=== PATIENT | female | born 1955 | race Two or more races ===

== ENCOUNTER 2022-11-18 17:30 | Emergency (ER) | payer OTHER ==
[~2022-11-18] VITALS: Ht 152.4 cm; Wt 77.0 kg
[2022-11-18 19:50] VITALS: BP 121/61
== END 2022-11-18 21:55 | disposition left against medical advice (07) ==
LOC: EDBD 17:30 → ER 17:35
DX: M54.2 Cervicalgia (principal); Z53.21 Procedure and treatment not carried out due to patient leaving prior to being seen by health care provider; V89.2XXA Person injured in unspecified motor-vehicle accident, traffic, initial encounter; Y93.89 Activity, other specified; Y92.89 Other specified places as the place of occurrence of the external cause; Y99.8 Other external cause status